=== PATIENT | male | born 1980 | race Caucasian/White ===

== ENCOUNTER 2019-11-10 19:32 | Emergency (ER) | payer OTHER ==
[~2019-11-10] VITALS: Ht 172.7 cm; Wt 67.8 kg
[2019-11-10 19:33] VITALS: BP 134/83
[2019-11-10] MEDS ORDERED: IBUP200C25 PO (19:39)
[2019-11-10] MEDS ORDERED: AMOX500C PO (20:13)
[2019-11-10] MEDS ORDERED: NORCO 5/325MG TABLET (BULK FOR ED) PO ONE (20:15)
[2019-11-10] MEDS ORDERED: AMOXICILLIN 500 MG CAP PO ONE (20:15)
== END 2019-11-10 20:28 | disposition home or self-care (01) ==
LOC: EDBD 19:32 → M ED 19:32
DX: H66.92 Otitis media, unspecified, left ear (principal); F17.200 Nicotine dependence, unspecified, uncomplicated

== ENCOUNTER 2019-12-20 17:47 | Emergency (ER) | payer OTHER ==
[~2019-12-20] VITALS: Ht 172.7 cm; Wt 65.8 kg
[~2019-12-20 17:47] MED LIST: AMOX500C PO; IBUP200C25 PO
[2019-12-20] MEDS ORDERED: AMPICILLIN SOD/SULBACTAM SOD 3 GM in D5W MINI-BAG PLUS 100 ML IV ONE (18:15)
[2019-12-20 18:26] LABS: BASO % 0.6 % (0.0-1.0); EOS # 0.1 10^3/uL (0.0-0.5); EOS % 2.1 % (0.0-3.0); HEMOGLOBIN 14.5 g/dl (13.5-17.5); LYMPH # 2.2 10^3/uL (1.5-5.0); LYMPH % 35.4 % (24.0-44.0); MEAN CORPUSCULAR HEMOGLOBIN 33.2 pg (27.0-33.0); MEAN CORPUSCULAR HGB CONC 33.7 g/dl (32.0-36.5); MEAN CORPUSCULAR VOLUME 98.4 fl (80.0-96.0); MONO # 0.4 10^3/uL (0.0-0.8); MONO % 6.3 % (0.0-5.0); NEUTROPHILS # 3.4 10^3/uL (1.5-8.5); NEUTROPHILS % 54.6 % (36.0-66.0); PLATELET COUNT, AUTOMATED 233 10^3/uL (150-450); RED BLOOD COUNT 4.37 10^6/uL (4.30-6.10); WHITE BLOOD COUNT 6.2 10^3/uL (4.0-10.0)
[2019-12-20 18:54] LABS: BLOOD UREA NITROGEN 6 MG/DL (7-18); C REACTIVE PROTEIN QUANTITATIV < 0.30 MG/DL (0.00-0.30); CALCIUM LEVEL 8.7 MG/DL (8.5-10.1); CARBON DIOXIDE LEVEL 25 MEQ/L (21-32); CHLORIDE LEVEL 109 MEQ/L (98-107); CREATININE FOR GFR 0.78 MG/DL (0.70-1.30); GLOMERULAR FILTRATION RATE > 60.0 (>60); GLUCOSE, FASTING 93 MG/DL (70-100); POTASSIUM SERUM 4.5 MEQ/L (3.5-5.1); SODIUM LEVEL 140 MEQ/L (136-145)
[2019-12-20] MEDS ORDERED: AUGM875T28 PO (19:52)
[2019-12-20 20:06] VITALS: BP 140/77
--- NOTE | 2019-12-20 22:41 | REP ---
TIB-FIB SERIES, TWO VIEWS: HISTORY: Dog bite injury lower leg posteriorly. FINDINGS: There is soft tissue irregularity and swelling in the posterior aspect of the distal calf on the lateral radiograph. No opaque foreign body is seen. No fracture is noted. IMPRESSION: No fracture or opaque foreign body noted. Soft tissue injury seen. Electronically Signed by Jaya Aguilar MD 12/21/2019 07:04 A
== END 2019-12-20 20:06 | disposition home or self-care (01) ==
LOC: M ED 17:47
DX: S81.831A Puncture wound without foreign body, right lower leg, initial encounter (principal); L03.115 Cellulitis of right lower limb; W54.0XXA Bitten by dog, initial encounter; Y92.098 Other place in other non-institutional residence as the place of occurrence of the external cause; F17.200 Nicotine dependence, unspecified, uncomplicated